=== PATIENT | female | born 1990 | race American Indian/Alaskan Native ===

== ENCOUNTER 2018-04-25 13:55 | Emergency (ER) | payer SELFPAY ==
[2018-04-25 14:03] VITALS: BP 107/72
[2018-04-25 14:58] LABS: HCG Qualitative,Urine Negative (Negative)
[2018-04-25 15:02] LABS: Bilirubin,Urine NEG (Negative); Blood,Urine MOD (Negative); Color,Urine Yellow (Yellow); Mucus,Urine FEW /HPF; Protein,Urine <15 mg/dL mg/dL (Negative)
== END 2018-04-25 15:41 | disposition left against medical advice (07) ==
LOC: ED 13:55
DX: R10.31 Right lower quadrant pain (principal); Z53.21 Procedure and treatment not carried out due to patient leaving prior to being seen by health care provider
CPT/HCPCS: 81001; 81025